=== PATIENT | female | born 1985 | race Caucasian/White ===

== ENCOUNTER → 2017-09-22 | Outpatient (CLI) | payer OTHER | END | disposition home or self-care (01) | LOC: LAB.O 15:59 | PROVIDERS: ATTEND Nurse Practitioner Family | DX: N92.1 Excessive and frequent menstruation with irregular cycle (principal) ==

== ENCOUNTER → 2017-11-28 | Outpatient (CLI) | payer OTHER | END | disposition home or self-care (01) | LOC: YCFC.O 08:52 | PROVIDERS: ATTEND Nurse Practitioner Family | DX: N91.2 Amenorrhea, unspecified (principal) ==

== ENCOUNTER → 2017-12-01 | Outpatient (CLI) | payer OTHER | END | disposition home or self-care (01) | LOC: YCFC.O 14:39 | PROVIDERS: ATTEND Nurse Practitioner Family | DX: Z32.01 Encounter for pregnancy test, result positive (principal) ==

== ENCOUNTER → 2017-12-22 | Outpatient (CLI) | payer OTHER | LOC: YCFC.O 15:42 | PROVIDERS: ATTEND Nurse Practitioner Family | DX: E07.9 Disorder of thyroid, unspecified (principal) ==

== ENCOUNTER → 2018-01-13 | Outpatient (CLI) | payer OTHER ==
--- NOTE | 2018-01-13 17:54 | US ---
EXAM DESCRIPTION: OB Ultrasound less than 13 weeks CLINICAL HISTORY: DATING COMPARISON: None Available. TECHNIQUE: Transabdominal and transvaginal OB ultrasound FINDINGS: Patient gives a history of last menstrual period 10/22/2017 which would date the 11 weeks 6 days. Ultrasound estimated date of delivery is 07/29/2018. crown-rump length measurement of 3.85 cm corresponds to a gestational age of 10 weeks 5 days with an ultrasound estimated date delivery 08/06/2018 approximately 8 days later than expected from last menstrual period. Transabdominal images show near empty maternal bladder. Gestational sac is seen centrally situated within the uterus. A single fetus is identified within the gestational sac with normal early anatomy. Transvaginal images were obtained. 4 limb buds are seen. Normal echogenic periphery of the gestational sac with no subchorionic hemorrhage. Thickened appearance anteriorly may be the ultimate site of the placenta. Normal yolk sac. Maternal right ovary measures 3.7 x 1.1 x 3.5 cm with a normal appearance and small follicles. The maternal left ovary measures 4.2 x 3.7 x 1.5 cm with no dominant follicle or corpus luteal cyst seen. Uterus is measured. No uterine mass. Cervix is closed. Uterine length is 13.5 cm. Cervical length is measured at 3.3 cm which is normal with near empty maternal bladder. Positive cardiac pulsations are recorded on the ultrasound worksheet with normal heart rate of 159 bpm. However no cine images are submitted. No recorded static images showing M-mode echocardiography. IMPRESSION: Positive cardiac pulsations are reported but no M-mode images are submitted for confirmation. These could be repeated and recorded. Otherwise normal appearance of early intrauterine gestational sac and contents with normal appearance of the early fetus and yolk sac. Normal sized maternal ovaries with no identified corpus luteum. Embryonic length indicates a gestational age of 10 weeks 5 days, 8 days less than predicted from last menstrual period. Electronically signed by: Lars Sen MD 01/13/2018 5:54 PM [employer]
== END ==
LOC: US 13:38
DX: Z34.81 Encounter for supervision of other normal pregnancy, first trimester (principal)

== ENCOUNTER → 2018-03-24 | Outpatient (CLI) | payer OTHER ==
--- NOTE | 2018-03-24 21:37 | US ---
EXAM DESCRIPTION: OB Level 2 /Maternal: Ultrasound. CLINICAL HISTORY: Gestational size and dates correlation. Second trimester anatomy scan.. 3 para 2, AB 0. By LMP , EGA today is 20 weeks, 5 days, with IVAN of 08/06/2018. COMPARISON: First trimester OB ultrasound 01/13/2018. EGA today is 20 weeks, 5 days. IVAN is 08/06/2018.. TECHNIQUE: Trans-pelvic scanning through the urine-filled bladder; two-dimensional, color Doppler, and M-mode sonography FINDINGS: Single, intrauterine gestation, breech position. Amniotic fluid volume subjectively normal. NICANOR : Not Measured.. Maternal cervix internal os unremarkable. Placenta anterior with no evidence of previa or abruptio. heart rate by M-mode sonography 136 beats/min. limb activity observed. structural survey: Situs solitus. The following structures were visualized and grossly normal - urinary bladder, stomach, and bilateral kidneys; cord insertion, 3-vessel cord and 4 extremities; spine, 4-chamber heart; diaphragm, lateral ventricles, cerebellum, and cisterna magna. Nose/lips not well seen.. 1.3 cm and 1.1 cm choroid plexus cysts are present. Cardiac ventricular outflow tracts are not recorded. Ultrasound parameter measurements for estimating gestational age: BPD 45.3 mm 01/04 (weeks/days). Head circumference 170.7 mm 01/04. Abdominal circumference 151.2 mm /. Femur length 31.9 mm 02/05. Ultrasound parameter ratios and cephalic index are within the normal range. Mean estimated gestational age is 19 weeks 6 days, corresponding to IVAN of 08/12/2018. Estimated weight based on these measurements is 331+/- 50 g. 12 ounces. 16th percentile by LMP.. Bilateral adnexa not well seen; ovaries not seen. IMPRESSION: 1. Single, living, intrauterine gestation in breech presentation. Amniotic fluid volume subjectively normal, and maternal cervix internal os unremarkable. Placenta anterior with no evidence of previa. Structural survey grossly normal . 2 choroid plexus cysts are seen. With no other structure abnormalities visualized, risk of trisomy 18 is less than 0.25%. nose and lips were not well seen. 2. Estimated gestational age by today's ultrasound examination is 19 weeks 6 days with IVAN 08/12/2018. This is 6 days younger than the estimated gestation age by menstrual dates. 3. Estimated weight is 331 g. 12 ounces. 16th Percentile by LMP. Electronically signed by: Oscar Schafer MD 03/24/2018 9:35 PM CDT
== END ==
LOC: US 13:30
DX: Z34.82 Encounter for supervision of other normal pregnancy, second trimester (principal)

== ENCOUNTER → 2018-04-21 | Outpatient (CLI) | payer OTHER ==
--- NOTE | 2018-04-24 08:53 | US ---
EXAM DESCRIPTION: OB Follow-Up: Ultrasound. CLINICAL HISTORY: Gestational size and dates correlation. Follow-up. Choroid plexus cysts on prior scan. 3 para 2, AB 0. By medical history , EGA today is 24 weeks, 5 days, with IVAN of 08/06/2018. COMPARISON: Previous OB ultrasound 03/24/2018.. EGA today is 23 weeks, 6 days. IVAN is 08/12/2018.. TECHNIQUE: Trans-pelvic scanning through the urine-filled bladder; two-dimensional, color Doppler, and M-mode sonography FINDINGS: Single, intrauterine gestation, breech position. Amniotic fluid volume subjectively normal. NICANOR : Not measured. Maternal cervix internal os unremarkable.. Placenta anterior with no evidence of previa or abruptio. heart rate: M-mode 139 beats/min. limb activity observed. structural survey: Choroid plexus and cerebellum were visualized. No choroid plexus cysts.. 3 vessel cord, femurs were visualized. Nose/lips not well seen. Ultrasound parameter measurements for estimating gestational age: BPD 57.9 mm /5 (weeks/days). Head circumference 214.2 mm /3. Abdominal circumference 198.2 mm 24/3. Femur length 42.5 mm /6. Ultrasound parameter ratios and cephalic index are within the normal range. Mean estimated gestational age is 23 weeks 6 days, corresponding to IVAN of 08/12/2018. Estimated weight based on these measurements is 663+/- 99 g. 1 pound, 7 ounces. 18 percentile by medical history. Bilateral adnexa not well seen, ovaries not seen.. IMPRESSION: 1. Single, living, intrauterine gestation in breech presentation. Amniotic fluid volume subjectively normal, and maternal cervix internal os unremarkable.. Placenta anterior with no evidence of previa. Structural survey not repeated. No choroid plexus cysts were seen.. 2. Estimated gestational age by today's ultrasound examination is 23 weeks 6 days with IVAN 08/12/2018. This is 6 days younger than the estimated gestation age by adequate history. Normal interval growth since previous ultrasound.. 3. Estimated weight is 663 g. 1 pound, 7 ounces. 18th Percentile by medical history. Electronically signed by: Oscar Schafer MD 04/24/2018 8:52 AM CDT
== END ==
LOC: US 10:00
PROVIDERS: ATTEND Obstetrics & Gynecology
DX: G93.0 Cerebral cysts (principal)

== ENCOUNTER → 2018-04-27 | Outpatient (CLI) | payer OTHER | LOC: LAB.O 08:20 | PROVIDERS: ATTEND Obstetrics & Gynecology | DX: Z34.82 Encounter for supervision of other normal pregnancy, second trimester (principal) ==

== ENCOUNTER → 2018-06-12 | Outpatient (CLI) | payer OTHER ==
--- NOTE | 2018-06-12 16:53 | US ---
EXAM DESCRIPTION: OB ,Late (15-40wks): Ultrasound. CLINICAL HISTORY: Gestational size and dates correlation. Third Trimester follow-up limited. unknown. By medical history , EGA today is 32 weeks, 1 days, with IVAN of 08/06/2018. COMPARISON: First trimester OB ultrasound 01/13/2018. EGA today is 32 weeks, 1 day,. IVAN is 08/06/2018.. TECHNIQUE: Trans-pelvic scanning through the urine-filled bladder; peterson-scale, color Doppler, and M-mode sonography FINDINGS: Single, intrauterine gestation, cephalic position. Amniotic fluid volume normal. NICANOR : 17.5 cm.. Maternal cervix not well seen. Placenta anterior with no evidence of previa or abruptio. heart rate by M-mode sonography 122 beats/min. limb activity observed. structural survey: Bilateral thalami were visualized. Ultrasound parameter measurements for estimating gestational age: BPD 78.0 mm 31/2 (weeks/days). Head circumference 291.3 mm 32/1. Abdominal circumference 280.9 mm 32/1. Femur length 61.8 mm 32/0. Ultrasound parameter ratios and cephalic index are within the normal range. Mean estimated gestational age is 31 weeks 6 days, corresponding to IVAN of 08/08/2018. Estimated weight based on these measurements is 1889+/- 283 g. 4 pounds, 3 ounces. 35th percentile by medical history. Bilateral adnexa not well seen; ovaries not seen. IMPRESSION: 1. Single, living, intrauterine gestation in cephalic presentation. Amniotic fluid volume normal range, and maternal cervix not well seen.. Placenta anterior with no evidence of previa. Structural survey grossly normal . 2. Estimated gestational age by today's ultrasound examination is 31 weeks 6 days with IVAN 08/08/2018. This is 2 days younger than the estimated gestation age by medical history and first trimester ultrasound. 3. Estimated weight is 1889 g. 4 pounds, 3 ounces. 35th Percentile by medical history. Electronically signed by: Oscar Schafer MD 06/12/2018 4:52 PM CDT
== END ==
LOC: US 10:00
DX: Z34.83 Encounter for supervision of other normal pregnancy, third trimester (principal)

== ENCOUNTER → 2019-09-07 | Outpatient (CLI) | payer SELFPAY | LOC: YCFC.O 12:50 | PROVIDERS: ATTEND Family Medicine | DX: R30.9 Painful micturition, unspecified (principal) ==

== ENCOUNTER → 2019-12-26 | Outpatient (CLI) | payer OTHER | LOC: YCFC.O 15:06 | PROVIDERS: ATTEND Family Medicine | DX: E03.9 Hypothyroidism, unspecified (principal) ==